=== PATIENT | female | born 1970 | race African-American/Black ===

== ENCOUNTER 2018-05-18 16:58 | Emergency (ER) | payer OTHER ==
[2018-05-18 17:06] VITALS: BMI 36.3
--- NOTE | 2018-05-18 17:07 | PDOC ---
History of Present Illness - General Chief Complaint: Lightheaded Stated Complaint: DIZZINESS,WEAKNESS,PALPITATION Time Seen by Provider: 05/18/18 17:07 History Source: Patient Exam Limitations: No Limitations - History of Present Illness Initial Comments: 05/18/18 17:55 Ms. Priest is a 47 yo F with a hx of nephrolithiasis who presents to the emergency department with increased weakness and fatigue for the past 1 week. She states it has been ongoing with occassonal palpitations and throbbing headache. She denies fevers, chills, nausea, vomiting, FND, recent visual changes, chest pain, SOB, abdominal pain, dysuria, hematuria, diarrhea, melena, hematochezia, leg pain/swelling, and loss of sensation and motor function. She has an upcoming lithotripsy procedure with Dr. Fofana this (her last procedure was March 2018) for left renal calculi. She has anxiousness for her upcoming procedure since she feels she wont feel strong enough for it. Shx: None Meds: Potassium chloride (restarted today, she has been off it for 2 weeks. Labs for pre-op were 1.5 weeks after last dose of potassium). Allergies: NKDA Social hx: Denies tobacco, alcohol, and substance use. Past History - Past Medical History Allergies/Adverse Reactions: Allergies Allergy/AdvReac Type Severity Reaction Status Date / Time No Known Allergies Allergy Verified 05/18/18 17:06 Home Medications: Ambulatory Orders Potassium Citrate [Potassium Citrate ER] 10 meq PO DAILY 05/18/18 COPD: No Kidney Stones: Yes - Suicide/Smoking/Psychosocial Hx Smoking History: Never smoked Review of Systems - Review of Systems Able to Perform ROS?: Yes Constitutional: Yes: Weakness. No: Chills, Diaphoresis, Fever HEENTM: No: Eye Pain, Recent change in vision, Ear Pain, Nose Pain, Throat Pain , Mouth Pain Respiratory: No: Cough, Shortness of Breath, Hemoptysis Cardiac (ROS): No: Chest Pain, Irregular Heart Rate, Lightheadedness, Palpitations, Syncope, Chest Tightness ABD/GI: No: Constipated, Diarrhea, Nausea, Poor Appetite, Poor Fluid Intake, Rectal Bleeding, Vomiting, Indigestion, Tarry Stools : No: Burning, Dysuria, Flank Pain, Hematuria Musculoskeletal: No: Back Pain, Joint Pain, Muscle Pain Integumentary: No: Bruising, Lumps, Pruritus, Rash Neurological: No: Headache, Numbness, Paresthesia, Tingling, Tremors, Weakness, Ataxia, Dizziness Psychiatric: No: Stressors Endocrine: No: Increased Hunger Hematologic/Lymphatic: No: Anemia *Physical Exam - Vital Signs Last Vital Signs Temp Pulse Resp BP Pulse Ox 98.7 F 76 18 112/65 99 05/18/18 17:03 05/18/18 17:03 05/18/18 17:03 05/18/18 17:03 05/18/18 17:03 - Physical Exam General Appearance: Yes: Nourished, Appropriately Dressed HEENT: positive: EOMI, KARY, Normal ENT Inspection, Normal Voice, Symmetrical, TMs Normal, Pharynx Normal Neck: positive: Trachea midline. negative: Lymphadenopathy (R), Lymphadenopathy (L) Respiratory/Chest: positive: Lungs Clear, Normal Breath Sounds. negative: Chest Tender, Respiratory Distress, Accessory Muscle Use Cardiovascular: positive: Regular Rhythm, Regular Rate, S1, S2. negative: Systolic Murmur Gastrointestinal/Abdominal: positive: Normal Bowel Sounds. negative: Tender Lymphatic: negative: Adenopathy Musculoskeletal: positive: Normal Inspection. negative: CVA Tenderness, Vertebral Tenderness Extremity: positive: Normal Capillary Refill, Normal Inspection, Normal Range of Motion. negative: Tender, Swelling, Calf Tenderness, Erythema Integumentary: positive: Normal Color, Dry, Warm. negative: Rash, Swelling Neurologic: positive: cad programmer II-XII NML intact, Fully Oriented, Alert, Normal Mood/ Affect, Normal Response, Motor Strength 5/5. negative: EOM Palsy, Facial Droop , Sensory Deficit, Confused Heart Score/ECG Review - ECG Intrepretation Comment:: 05/18/18 18:14 ventricular rate: 62 bpm, [place] interval 146 ms, QRS 78 ms, QTc 418 ms, normal sinus rhythm and ST elevations or depressions. No repolarizaton disturbances or arrhythmias noted. Medical Decision Making - Medical Decision Making 05/18/18 18:06 47 yo F with a hx of nephrolithiasis presenting with weakness. Recently had lab work done (05/15/2018) for pre-op with Dr. Fofana for lithotripsy. CBC and CMP were within normal limits. She states she takes potassium, but recently restarted it yesterday after a 2 week hiatus (her labs were 1-1.5 weeks after her last dose of potassium and within normal limits). Ordering UA and EKG to rule out UTI and cardiogenic etiology for syncope EKG was within normal limits without ST elevations, depressions, or irregular rhythm. UA was within normal limits. Initial Vital Signs Temp Pulse Resp BP Pulse Ox 98.7 F 76 18 112/65 99 05/18/18 17:03 05/18/18 17:03 05/18/18 17:03 05/18/18 17:03 05/18/18 17:03 Work up: Laboratory Tests 05/18/18 17:42 Urine Color Straw Urine Appearance Clear Urine pH 6.0 Ur Specific [place] 1.009 Urine Protein Negative Urine Glucose (UA) Negative Urine Ketones Negative Urine Blood Negative Urine Nitrite Negative Urine Bilirubin Negative Urine Urobilinogen Negative Ur Leukocyte Esterase Negative Dispo: Home DC with follow up. She stated she saw he Pmd last Saturday and was given a referral to cardiology. She will follow up with that appointment,. 05/18/18 18:15 *DC/Admit/Observation/Transfer Diagnosis at time of Disposition: Fatigue Qualifiers: Fatigue type: unspecified Qualified Code(s): R53.83 - Other fatigue - Discharge Dispostion Disposition: HOME Decision to Admit order: No - Referrals Referrals: Vidal Dowling [Non Staff, Medical] - [facility] – [place] [facility] [Provider Group] Aston Oliver MD [Staff Physician] - - Patient Instructions Additional Instructions: You have been evaluated in the emergency department for your increasing fatigue. We assessed your recent labs and found them to be within normal limits. Your EKG was within normal limits. Your urine analysis was within normal limits. Please follow up with your primary medical doctor and keep to your appointment/referral with your title one teacher. We have provided you a referral to cardiology and our own clinic in the event you need follow up with us. Please see your title one teacher and primary medical doctor within 24-36 hours for follow up care. Please return to the emergency department if you have worsening of symptoms or new concerning symptoms develop. - Post Discharge Activity
[2018-05-18 18:05] LABS: URINE APPEARANCE CLEAR; URINE BILIRUBIN NEGATIVE (<2.0 mg/dL); URINE COLOR STRAW; URINE GLUCOSE (UA) NEGATIVE (NEGATIVE); URINE KETONE NEGATIVE (NEGATIVE); URINE LEUK ESTERASE NEGATIVE (NEGATIVE); URINE NITRITE NEGATIVE (NEGATIVE); URINE PROTEIN NEGATIVE (NEGATIVE); URINE UROBILINOGEN NEGATIVE mg/dL (0.2-1.0)
--- NOTE | 2018-05-18 18:23 | PDOC ---
Attending Attestation - HPI HPI: 05/18/18 18:27 47 y/o female with a pmhx of nephrolithiasis who presents to the emergency department for evaluation of a 2 week history of generalized malaise and weakness. Patient reports a 1 week history of associated episodes of intermittent lightheadedness and palpitations. She also reports decreased appetite and a headache described as throbbing. Pt states these symptoms are new. Denies chest pain, back pain, shortness of breath, recent sick contact, diarrhea , nausea, vomiting, fevers, and chills. No complaints of visual changes, slurred speech, or swelling of extremities. - Physicial Exam PE: HEAD: Normocephalic, atraumatic. PERRL, EOM intact. NECK: No JVD or bruits. CARDIOVASCULAR: Regular rate and rhythm. No gallops, murmurs, or rubs. PULMONARY: Clear to auscultation bilaterally. ABDOMEN: Protuberant, but soft, non-tender. EXTREMITIES: Normal ROM in all four extremities. No gross deformities or cyanosis. No clubbing, edema, or calf tenderness. NEUROLOGICAL: No focal neurological deficits. SKIN: Warm, dry. No rash <Jinny Ware - Last Filed: 05/18/18 18:36> - Resident Resident Name: Regis Ahuja - ED Attending Attestation I have performed the following: I have examined & evaluated the patient, The case was reviewed & discussed with the resident, I agree w/resident's findings & plan, Exceptions are as noted - Medical Decision Making 05/18/18 23:17 this 47 yo female has experienced 2 weeks of general malaise and a vague feeling of head discomfort that she states is not really pain . She is scheduled for lithotripsy this with Dr Farmer. She does not have fever,vomiting,abd pain,shortness of breath,visual changes She saw her own doctor last for this complaint of malaise and weakness and she does have a referral to a correction worker for further work up 05/18/18 23:21 05/18/18 23:51 her labs were drawn 05/15/18 and her cbc and chemistries are unremarkable. Today her UA is negative pr instructed to follow her doctors instructions and followup with the correction worker <Naa Hammer - Last Filed: 05/18/18 23:52> Attestations - Attestations Documentation prepared by Jinny Ware, acting as medical billing service for Naa Hammer MD. <Jinny Ware - Last Filed: 05/18/18 18:36>
[2018-05-18 18:36] VITALS: BP 108/63; PULSE 72; TEMP 97.9
--- NOTE | 2018-05-19 09:59 | EKG ---
Test Reason : Blood Pressure : / mmHG Vent. Rate : 062 BPM Atrial Rate : 062 BPM P-R Int : 146 ms QRS Dur : 078 ms QT Int : 412 ms P-R-T Axes : 023 035 038 degrees QTc Int : 418 ms NORMAL SINUS RHYTHM NORMAL ECG NO PREVIOUS ECGS AVAILABLE Confirmed by CARLOS ORTIZ MD ([id number]) on 05/19/2018 9:59:39 AM Referred By: Confirmed By:CARLOS ORTIZ MD
== END 2018-05-18 18:36 | disposition home or self-care (01) ==
LOC: JER 16:58
DX: R53.83 Other fatigue (principal)
CPT/HCPCS: 81003; 87086; 93005; 93010; 99283-25

== ENCOUNTER 2019-01-29 02:12 | Emergency (ER) | payer OTHER | END 2019-01-29 09:55 | disposition home or self-care (01) | LOC: JER 02:12 ==